=== PATIENT | male | born 1990 | race Caucasian/White ===

== ENCOUNTER 2018-10-06 23:45 | Emergency (ER) | payer MEDICAID ==
[~2018-10-06] VITALS: Ht 177.8 cm; Wt 103.4 kg
[2018-10-07 00:09] VITALS: BP 159/108
[2018-10-07] MEDS ORDERED: LIDOCAINE /MPF 1% VIAL 5 ML VIAL ONE (00:42)
[2018-10-07] MEDS ORDERED: TDAP [DIPH/PERTUSSIS/TET] 0.5 ML VIAL IM ONE ×2 (00:56→01:00)
[2018-10-07] MEDS ORDERED: LIDOCAINE 0.5% HCL 50 ML VIAL IJ ONE (01:00)
--- NOTE | 2018-10-07 01:17 | NUR ---
aPatient discharged to home in stable condition. Written and verbal after care instructions given. Patient verbalizes understanding of instruction. Pt ambulatory with a steady gait. finger splint placed on R thumb
== END 2018-10-07 01:24 | disposition home or self-care (01) ==
LOC: ER 23:54
DX: S61.011A Laceration without foreign body of right thumb without damage to nail, initial encounter (principal); X58.XXXA Exposure to other specified factors, initial encounter; Y93.H2 Activity, gardening and landscaping; Y92.89 Other specified places as the place of occurrence of the external cause; Y99.8 Other external cause status
CPT/HCPCS: 12001; 90471; 90715; 99283; A6402 ×2; A6403; J3490

== ENCOUNTER 2018-10-16 23:39 | Emergency (ER) | payer MEDICAID ==
[~2018-10-16] VITALS: Ht 177.8 cm; Wt 102.1 kg
[2018-10-17 00:05] VITALS: BP 123/92
== END 2018-10-17 00:21 | disposition home or self-care (01) ==
LOC: ER 23:43
DX: S61.011D Laceration without foreign body of right thumb without damage to nail, subsequent encounter (principal); X58.XXXD Exposure to other specified factors, subsequent encounter

== ENCOUNTER 2018-11-11 11:32 | Emergency (ER) | payer MEDICAID ==
[~2018-11-11] VITALS: Ht 177.8 cm; Wt 102.1 kg
[2018-11-11 11:42] VITALS: BP 123/72
[2018-11-11] MEDS ORDERED: HYDROCODONE/APAP 5/325MG 1 EACH TABLET ONE (11:58)
[2018-11-11] MEDS ORDERED: HYDROCODONE/APAP 5/325MG 1 EACH TABLET PO ONE (12:00)
--- NOTE | 2018-11-11 12:11 | NUR ---
PATIENT DENIES PAIN OR DISCOMFORT AT THIS TIME.
== END 2018-11-11 12:12 | disposition home or self-care (01) ==
LOC: ER 11:35
DX: H60.501 Unspecified acute noninfective otitis externa, right ear (principal); H66.91 Otitis media, unspecified, right ear

== ENCOUNTER 2021-08-11 19:46 | Emergency (ER) | payer MEDICAID ==
[~2021-08-11] VITALS: Ht 180.3 cm; Wt 93.0 kg
--- NOTE | 2021-08-11 20:22 | NUR ---
PT BIBSELF C/O R FINGER LAC. CUT FINGER WITH [employer]. UTD WITH TDAP. PT A/OX4. TOLERATING R/A WELL WITH NO SOB
[2021-08-11] MEDS ORDERED: HYDROCODONE/APAP 5/325MG TABLET PO ONE (20:30)
[2021-08-11] MEDS ORDERED: CELLULOSE,OXIDIZED 1 EA PACK MC ONE (20:30)
[2021-08-11] MEDS ORDERED: HYDROCODONE/APAP 5/325MG TABLET ONE (20:33)
--- NOTE | 2021-08-11 20:45 | NUR ---
[employer] AT PT'S BEDSIDE
[2021-08-11] MEDS ORDERED: CEFAZOLIN 1 GM VIAL IM ONE (21:00)
[2021-08-11] MEDS ORDERED: CEPH500T PO (21:10)
[2021-08-11] MEDS ORDERED: CEFTRIAXONE 1 G VIAL ONE (21:52)
[2021-08-11] MEDS ORDERED: LIDOCAINE 1% INJ 50 ML MDV IJ ONE (21:52)
[2021-08-11] MEDS ORDERED: HYDR-4303 PO (21:55)
[2021-08-11] MEDS ORDERED: CEFTRIAXONE 1 G VIAL IM ONE (22:00)
[2021-08-11] MEDS ORDERED: TDAP [DIPH/PERTUSSIS/TET] 0.5 ML VIAL IM ONE ×2 (22:12→22:30)
--- NOTE | 2021-08-11 22:47 | NUR ---
Patient discharged to home in stable condition. Written and verbal after care instructions given. Patient verbalizes understanding of instruction.
[2021-08-11 22:49] VITALS: BP 145/91
== END 2021-08-11 22:49 | disposition home or self-care (01) ==
LOC: ER 19:48
DX: S61.210A Laceration without foreign body of right index finger without damage to nail, initial encounter (principal); F17.200 Nicotine dependence, unspecified, uncomplicated; Z79.899 Other long term (current) drug therapy; W26.9XXA Contact with unspecified sharp object(s), initial encounter; Y93.89 Activity, other specified; Y92.89 Other specified places as the place of occurrence of the external cause; Y99.8 Other external cause status
CPT/HCPCS: 73130; 90471; 90715; 96372; 99284; J0696; J3490; J0690